=== PATIENT | female | born 1965 | race African-American/Black ===

== ENCOUNTER 2024-06-16 17:32 | Emergency (ER) | payer MEDICARE, OTHER ==
--- NOTE | 2024-06-16 18:25 | ED ---
Abdominal Pain HPI - General Source: patient, RN notes reviewed Mode of arrival: ambulatory Limitations: no limitations <Annette Hogue - Last Filed: 06/16/24 18:22> <Hai Monte - Last Filed: 06/17/24 03:10> - General Chief Complaint: Abdominal Pain Stated Complaint: ABD pain/unable to have bowel movement Time Seen by Provider: 06/16/24 18:20 - History of Present Illness Initial Comments: Quick Note: This is a 59-year-old female who presents to the emergency department for abdominal pain and constipation. Reports increasing abdominal pain over the last 8 days and states that she has also not had a bowel movement in 8 days. She is passing little to no gas at this point. She did vomit once couple of days ago as well. Denies any history of bowel obstructions or similar problems in the past. (Annette Hogue) 59-year-old female presenting with chief complaint of abdominal pain. Patient comes from [place] being treated for crack cocaine use. She reports that she has not had a bowel movement in the last 8 days. Her abdomen feels distended and diffusely uncomfortable. She did vomit once a couple of days ago. No fever Or chills. No current vomiting. No chest pain or difficulty breathing. (Hai Monte) - Related Data Allergies Allergy/AdvReac Type Severity Reaction Status Date / Time No Known Allergies Allergy Verified 06/16/24 17:39 Review of Systems ROS Other: All systems not noted in ROS Statement are negative. <Annette Hogue - Last Filed: 06/16/24 18:22> ROS Other: All systems not noted in ROS Statement are negative. <Hai Monte - Last Filed: 06/17/24 03:10> ROS Statement: Those systems with pertinent positive or pertinent negative responses have been documented in the HPI. Past Medical History Past Medical History: Asthma, COPD, Diabetes Mellitus, Hypertension Past Surgical History: Section, Hysterectomy Smoking Status: Current every day smoker Past Alcohol Use History: None Reported Past Drug Use History: Cocaine, Marijuana <Annette Hogue - Last Filed: 06/16/24 18:22> General Exam Limitations: no limitations <Annette Hogue - Last Filed: 06/16/24 18:22> General appearance: alert, in no apparent distress Head exam: Present: atraumatic, normocephalic, normal inspection Eye exam: Present: normal appearance, EOMI Neck exam: Present: normal inspection. Absent: meningismus Respiratory exam: Present: normal lung sounds bilaterally. Absent: respiratory distress, wheezes, rales, rhonchi, stridor Cardiovascular Exam: Present: regular rate, normal rhythm, normal heart sounds. Absent: systolic murmur, diastolic murmur, rubs, gallop, clicks GI/Abdominal exam: Present: distended. Absent: guarding, rebound, rigid Neurological exam: Present: alert, oriented X3 Psychiatric exam: Present: normal affect, normal mood Skin exam: Present: warm, dry <Hai Monte - Last Filed: 06/17/24 03:10> - General Exam Comments Initial Comments: Visual Physical Exam Vital signs reviewed General: Well-appearing, nontoxic, no acute distress. Head: Normocephalic, atraumatic Eyes: PERRLA, EOMI ENT: Airway patent Chest: Nonlabored breathing Skin: No visual rash, normal skin tone Neuro: Alert and oriented 3 Musculoskeletal: No gross abnormalities (Annette Hogue) Course Vital Signs 06/16/24 06/16/24 06/17/24 17:35 21:24 00:03 Temperature 97.8 F 98.5 F 98.1 F Pulse Rate 82 83 91 Respiratory 18 16 16 Rate Blood Pressure 100/65 99/61 96/68 O2 Sat by Pulse 97 98 100 Oximetry Medical Decision Making <Annette Hogue - Last Filed: 06/16/24 18:22> - Lab Data Result diagrams: 06/16/24 18:55 06/16/24 18:55 <Hai Monte - Last Filed: 06/17/24 03:10> - Medical Decision Making I performed the QuickNote portion of this chart. Signed Annette Hogue PA-C. (Annette Hogue) Was pt. sent in by a medical professional or institution ([facility], [employer] INTERCEPT CONTROLLER SUPERVISOR, urgent care, hospital, or [facility]...) When possible be specific @ -No Did you speak to anyone other than the patient for history (EMS, parent, family, police, friend...)? What history was obtained from this source @ -No Did you review nursing and triage notes (agree or disagree)? Why? @ -I reviewed and agree with nursing and triage notes Were old charts reviewed (outside hosp., previous admission, EMS record, old EKG, old radiological studies, urgent care reports/EKG's, [facility] records)? Report findings @ -No old charts were reviewed Differential Diagnosis (chest pain, altered mental status, abdominal pain women, abdominal pain men, vaginal bleeding, weakness, fever, dyspnea, syncope, headache, dizziness, GI bleed, back pain, seizure, CVA, palpatations, mental health, musculoskeletal)? @ -MDM Differential Abdominal Pain Women: Appendicitis, Cholecystitis, diverticulosis, ischemic bowel, pancreatitis, hepatitis, UTI, gastroenteritis, AAA, incarcerated hernia, bowel obstruction, constipation, inflammatory bowel, hepatitis, peptic ulcer disease, splenic infarction, perforated viscus, vulvitis, ovarian torsion, PID, kidney stone, placenta abruption... This is not meant to be an all-inclusive list EKG interpreted by me (3pts min.). @ -As above X-rays interpreted by me (1pt min.). @ -The x-ray shows large stool burden throughout the colon. Nonspecific bowel gas pattern without radiographic evidence for acute process. CT interpreted by me (1pt min.). @ -None done U/S interpreted by me (1pt. min.). @ -None done What testing was considered but not performed or refused? (CT, X-rays, U/S, labs)? Why? @ -None What meds were considered but not given or refused? Why? @ -None Did you discuss the management of the patient with other professionals (professionals i.e. , PA, AIR INTERCEPT CONTROLLER SUPERVISOR, lab, RT, psych nurse, social service technician, deputy of counter intelligence, teacher, multisensor intelligence officer, case resolution specialist)? Give summary @ -No Was smoking cessation discussed for >3mins.? @ -No Was critical care preformed (if so, how long)? @ -No Were there social determinants of health that impacted care today? How? (Homelessness, low income, unemployed, alcoholism, drug addiction, transportation, low edu. Level, literacy, decrease access to med. care, detention, rehab)? @ -No Was there de-escalation of care discussed even if they declined (Discuss DNR or withdrawal of care, Hospice)? DNR status @ -No What co-morbidities impacted this encounter? (DM, HTN, Smoking, COPD, CAD, Cancer, CVA, ARF, Chemo, Hep., AIDS, mental health diagnosis, sleep apnea, morbid obesity)? @ -None Was patient admitted / discharged? Hospital course, mention meds given and route, prescriptions, significant lab abnormalities, going to OR and other pertinent info. @ -59-year-old female presenting with chief complaint of abdominal distention and constipation. Sent from [place]. Workup is initiated by triage. On physical exam the patient's abdomen is quite distended. No leukocytosis or anemia. KUB x-ray shows large stool burden throughout the colon. Patient is given an enema and is able to have a bowel movement. She does report some relief and she is eating and resting comfortably. She is provided with a dose of magnesium citrate to take with her in case she needs it for later. Discharged back to [place]. Follow-up with PCP. Report back to ER with any new or worsening symptoms. Discussed return parameters and answered all questions. Patient conveyed verbal understanding and agreed to the plan. I discussed this case in detail with my attending Dr. Stoll Undiagnosed new problem with uncertain prognosis? @ -No Drug Therapy requiring intensive monitoring for toxicity (Heparin, Nitro, Insu enrique, Cardizem)? @ -No Were any procedures done? @ -No Diagnosis/symptom? @ -Constipation Acute, or Chronic, or Acute on Chronic? @ -Acute Uncomplicated (without systemic symptoms) or Complicated (systemic symptoms)? @ -Uncomplicated Side effects of treatment? @ -No Exacerbation, Progression, or Severe Exacerbation? @ -No Poses a threat to life or bodily function? How? (Chest pain, USA, MT, pneumonia, PE, COPD, DKA, ARF, appy, cholecystitis, CVA, Diverticulitis, Homicidal, Suicidal, threat to staff... and all critical care pts) @ -No (Hai Monte) - Lab Data Lab Results 06/16/24 06/16/24 06/16/24 Range/Units 18:55 18:55 18:55 WBC 10.1 (3.8-10.6) k/uL RBC 6.06 H (3.80-5.40) m/uL Hgb 13.5 (11.4-16.0) gm/dL Hct 43.8 (34.0-46.0) % MCV 72.3 L (80.0-100.0) fL MCH 22.3 L (25.0-35.0) pg MCHC 30.9 L (31.0-37.0) g/dL RDW 14.5 (11.5-15.5) % Plt Count 241 (150-450) k/uL MPV 6.7 Neutrophils % 61 % Lymphocytes % 30 % Monocytes % 6 % Eosinophils % 2 % Basophils % 0 % Neutrophils # 6.1 (1.3-7.7) k/uL Lymphocytes # 3.0 (1.0-4.8) k/uL Monocytes # 0.6 (0-1.0) k/uL Eosinophils # 0.2 (0-0.7) k/uL Basophils # 0.0 (0-0.2) k/uL Hypochromasia Moderate Microcytosis Slight Sodium 137 (137-145) mmol/L Potassium 4.2 (3.5-5.1) mmol/L Chloride 104 (98-107) mmol/L Carbon Dioxide 24 (22-30) mmol/L Anion Gap 9 mmol/L BUN 14 (7-17) mg/dL Creatinine 0.70 (0.52-1.04) mg/dL Est GFR (CKD-EPI)AfAm >90 (>60 ml/min/1.73 sqM) Est GFR (CKD-EPI)NonAf >90 (>60 ml/min/1.73 sqM) Glucose 89 (74-99) mg/dL Plasma Lactic Acid Yoni 1.7 (0.7-2.0) mmol/L Calcium 9.9 (8.4-10.2) mg/dL Total Bilirubin 0.6 (0.2-1.3) mg/dL AST 22 (14-36) U/L ALT 26 (4-34) U/L Alkaline Phosphatase 42 (38-126) U/L Total Protein 6.6 (6.3-8.2) g/dL Albumin 4.4 (3.5-5.0) g/dL Amylase 44 (30-110) U/L Lipase 52 (23-300) U/L Disposition <Annette Hogue - Last Filed: 06/16/24 18:22> Is patient prescribed a controlled substance at d/c from ED?: No Time of Disposition: 23:40 <Hai Monte - Last Filed: 06/17/24 03:10> Clinical Impression: Constipation Disposition: HOME SELF-CARE Condition: Good Instructions (If sedation given, give patient instructions): Constipation (ED), High Fiber Diet (ED) Additional Instructions: Follow-up with PCP. Report back to ER with any new or worsening symptoms. Referrals: Nonstaff,Physician [Primary Care Provider] - 1-2 days
--- NOTE | 2024-06-16 19:01 | XR ---
EXAMINATION TYPE: XR KUB DATE OF EXAM: 06/16/2024 6:54 PM CLINICAL INDICATION: Female, 59 years old with history of abdominal pain; COMPARISON: None. TECHNIQUE: One radiographic view of the abdomen was obtained. FINDINGS: There is a large stool burden, otherwise, the bowel gas pattern is nonspecific without dila adele loops of small or large bowel. . Fecal material and gas are demonstrated throughout the colon and rectum. There is no evidence for organomegaly or pneumoperitoneum. The osseous structures are intact. No ab normal calcifications are present. IMPRESSION: 1. Large stool burden throughout the colon. 2. Nonspecific bowel gas pattern without radiographic evidence for acute process. [facility], , 06/16/2024 6:58 PM
[2024-06-16 19:15] LABS: Basophils % (A) 0 %; Eosinophils # (A) 0.2 k/uL (0-0.7); Eosinophils % (A) 2 %; HCT 43.8 % (34.0-46.0); HGB 13.5 gm/dL (11.4-16.0); Hypochromasia Moderate; Lymphocytes % (A) 30 %; MCH 22.3 pg (25.0-35.0); MCHC 30.9 g/dL (31.0-37.0); MCV 72.3 fL (80.0-100.0); Mean Platelet Volume 6.7; Microcytosis Slight; Monocytes # (A) 0.6 k/uL (0-1.0); Monocytes % (A) 6 %; Neutrophils # (A) 6.1 k/uL (1.3-7.7); Neutrophils % (A) 61 %; Platelet Count 241 k/uL (150-450); RBC 6.06 m/uL (3.80-5.40); RDW 14.5 % (11.5-15.5); WBC 10.1 k/uL (3.8-10.6)
[2024-06-16 19:27] LABS: ALT 26 U/L (4-34); AST 22 U/L (14-36); African American GFR (CKD) >90 (>60 ml/min/1.73 sqM); Albumin 4.4 g/dL (3.5-5.0); Alkaline Phosphatase 42 U/L (38-126); Amylase 44 U/L (30-110); Anion Gap 9 mmol/L; Blood Urea Nitrogen 14 mg/dL (7-17); Calcium 9.9 mg/dL (8.4-10.2); Carbon Dioxide 24 mmol/L (22-30); Chloride 104 mmol/L (98-107); Glucose 89 mg/dL (74-99); Lipase 52 U/L (23-300); Non-African American GFR(CKD) >90 (>60 ml/min/1.73 sqM); Potassium 4.2 mmol/L (3.5-5.1); Sodium 137 mmol/L (137-145); Total Bilirubin 0.6 mg/dL (0.2-1.3); Total Protein 6.6 g/dL (6.3-8.2)
[2024-06-16 21:27] VITALS: RESP 16
[2024-06-17] MEDS: MAGNESIUM CITRATE 296 ML BOTTLE PO ONE (00:07)
[2024-06-17 00:20] VITALS: BP 96/68; PULSE 91; TEMP 98.1
== END 2024-06-17 00:25 | disposition home or self-care (01) ==
LOC: EC 17:32
CPT/HCPCS: 36415; 74018; 80053; 82150; 83605; 83690; 85025; 99284